=== PATIENT | male | born 1965 | race Caucasian/White ===

== ENCOUNTER 2016-07-27 23:15 | Emergency (ER) | payer SELFPAY ==
[~2016-07-27] VITALS: Ht 175.3 cm; Wt 90.8 kg
[2016-07-27 23:16] VITALS: BP 156/89
[2016-07-27] MEDS ORDERED: SULFAMETH./TRIMETHOPRIM DS 800MG/160MG TABLET ONE (23:51)
[2016-07-27] MEDS ORDERED: CEFAZOLIN 1,000 MG ONE (23:51)
[2016-07-28] MEDS ORDERED: SULFAMETH./TRIMETHOPRIM DS 800MG/160MG TABLET PO ONE
[2016-07-28] MEDS ORDERED: CEFAZOLIN 1,000 MG IM ONE
== END 2016-07-28 00:44 | disposition home or self-care (01) ==
LOC: ED 23:59
DX: L03.313 Cellulitis of chest wall (principal)
CPT/HCPCS: 10060; 71020; 99284; J0690

== ENCOUNTER 2016-08-02 01:47 | Emergency (ER) | payer SELFPAY ==
[~2016-08-02] VITALS: Ht 175.3 cm; Wt 92.1 kg
[2016-08-02 01:48] VITALS: BP 133/82
[2016-08-02] MEDS ORDERED: DEXAMETHASONE 4 MG TABLET ONE (02:27)
[2016-08-02] MEDS ORDERED: DEXAMETHASONE 4 MG TABLET PO ONE (02:30)
== END 2016-08-02 02:36 | disposition home or self-care (01) ==
LOC: ED 02:30
DX: T50.905A Adverse effect of unspecified drugs, medicaments and biological substances, initial encounter (principal); Y92.89 Other specified places as the place of occurrence of the external cause; L50.0 Allergic urticaria
CPT/HCPCS: 99282

== ENCOUNTER 2017-01-17 18:38 | Emergency (ER) | payer SELFPAY ==
[~2017-01-17] VITALS: Ht 177.8 cm; Wt 91.9 kg
[2017-01-17] MEDS ORDERED: FLUORESCEIN OPHTHALMIC 1 MG STRIP ONE (19:11)
[2017-01-17] MEDS ORDERED: PROPARACAINE OPHTH 0.5%, 15ML ONE (19:11)
[2017-01-17] MEDS ORDERED: PROPARACAINE OPHTH 0.5%, 15ML EACHEYE ONE (19:30)
[2017-01-17] MEDS ORDERED: FLUORESCEIN OPHTHALMIC 1 MG STRIP EACHEYE ONE (19:30)
[2017-01-17 19:48] VITALS: BP 136/81
== END 2017-01-17 19:50 | disposition home or self-care (01) ==
LOC: ED 19:34
DX: H10.023 Other mucopurulent conjunctivitis, bilateral (principal)
CPT/HCPCS: 99283